=== PATIENT | male | born 1995 | race Caucasian/White ===

== ENCOUNTER 2017-08-29 10:15 | Emergency (ER) | payer OTHER ==
--- NOTE | 2017-08-29 10:27 | EDPHY ---
H & P Time Seen by Provider: 08/29/17 10:23 HPI/ROS: CHIEF COMPLAINT: Bilateral lower extremity injury HISTORY OF PRESENT ILLNESS: 22-year-old male presents with a bilateral lower extremity injury. He was unloading heavy objects from a Pallet, when the Pallet fell onto his legs and pinned his legs underneath it. Estimated weight 600 lb. The palate was lifted and he was able to get out from under it. He now complains of moderate pain in the right thigh and left leg. No numbness or weakness. No other injuries. Fentanyl 50 mcg nebulized given by EMS. REVIEW OF SYSTEMS: complete 10 point ROS negative except as noted in the HPI Past Medical/Surgical History: Denies Social History: No recent alcohol Physical Exam: General Appearance: Alert, anxious Head: Atraumatic Eyes: No conjunctival erythema, PERRLA, EOMI ENT, Mouth: no oral trauma, no bony tenderness Neck: Nontender, full range of motion without pain Respiratory: No chest wall tenderness, lungs clear bilaterally Cardiovascular: Regular rate and rhythm Abdomen: Abdomen is soft and nontender Skin: No lacerations, no abrasions Back: No midline T/L/S tenderness Extremities: Pelvis is stable and nontender; right lower extremity-tenderness, abrasion and swelling over the medial aspect of the distal thigh, right hip/ knee range of motion normal and non painful; left lower extremity-tenderness, abrasion and swelling over the mid aspect of the lower leg and over the lateral malleolus, ankle ROM painful, range of motion of the hip/knee without pain. Compartments are soft, mild swelling present. Neurological: alert, normal motor function, normal sensory exam Vascular: 2+ dorsalis pedis pulses Psychiatric: Anxious Constitutional: Initial Vital Signs Temperature (C) 37.2 C 08/29/17 11:56 Heart Rate 88 08/29/17 11:56 Respiratory Rate 18 08/29/17 11:56 Blood Pressure 129/89 H 08/29/17 11:56 O2 Sat (%) 94 08/29/17 11:56 Allergies/Adverse Reactions: No Known Allergies Allergy (Unverified 08/29/17 11:47) Home Medications: Medication Instructions Recorded Hydrocodone/APAP 5/325 [[place] 1 - 2 tab PO Q4H PRN #10 tab 08/29/17 5/325] Medical Decision Making - Diagnostics Imaging Results: Femur X-Ray 08/29/17 10:24 Impression: Negative 2. Left Tibia-Fibula, 4 portable views History: Heavy work equipment fell on legs today, pain Findings: Prominent soft tissue swelling overlies the lateral malleolus. There is a nondisplaced oblique fracture through the distal fibula. There is a large ankle joint effusion. The knee joint and ankle joint are normally aligned. Impression: Nondisplaced distal fibular fracture. Tibia/Fibula X-Ray 08/29/17 10:24 Impression: Negative 2. Left Tibia-Fibula, 4 portable views History: Heavy work equipment fell on legs today, pain Findings: Prominent soft tissue swelling overlies the lateral malleolus. There is a nondisplaced oblique fracture through the distal fibula. There is a large ankle joint effusion. The knee joint and ankle joint are normally aligned. Impression: Nondisplaced distal fibular fracture. ED Course/Re-evaluation: This patient presents as a limited trauma activation for trauma to his legs. He refuses IV access. He was sent to x-ray. X-rays revealed a left distal fibular fracture. X-ray results discussed with the patient. He was placed in a Betts boot and on crutches. Percocet 2 tablets orally given and Toradol 60 mg IM. He will follow up with Ortho. At risk for compartment syndrome, given crush injury. Warning signs discussed. Differential Diagnosis: Differential diagnosis includes though it is not limited to open fracture, dislocation, compartment syndrome, neurovascular compromise. - Data Points Medications Given: Discontinued Medications Fentanyl (Sublimaze) 100 mcg IVP EDNOW ONE Stop: 08/29/17 11:28 Last Admin: 08/29/17 11:29 Dose: 100 mcg Ketorolac Tromethamine (Toradol) 60 mg IM EDNOW ONE Stop: 08/29/17 11:25 Last Admin: 08/29/17 11:30 Dose: 60 mg Oxycodone/Acetaminophen (Percocet 5/325) 1 tab PO EDNOW ONE Stop: 08/29/17 11:26 Last Admin: 08/29/17 11:30 Dose: 1 tab Departure - Departure Disposition: Home, Routine, Self-Care Clinical Impression: Fracture of distal end of left fibula Qualifiers: Encounter type: initial encounter Fracture type: closed Fracture morphology: unspecified fracture morphology Qualified Code(s): S82.832A - Other fracture of upper and lower end of left fibula, initial encounter for closed fracture Condition: Good Instructions: Leg Fracture (ED) Additional Instructions: Ibuprofen 600 mg 3 times daily while the pain persists. Return for worsening pain, numbness, weakness, any concerns. Referrals: Bill Nguyen MD [Medical Doctor] - As per Instructions (Call to make an appointment.) Stand Alone Forms: Work Excuse Prescriptions: Hydrocodone/APAP 5/325 [[place] 5/325] 1 - 2 tab PO Q4H PRN #10 tab PRN Reason: Pain, Moderate
[2017-08-29] MEDS ORDERED: fentaNYL 100 MCG/2 ML INJ ONE ×2 (11:17→11:20)
[2017-08-29] MEDS ORDERED: OXYCODONE/APAP 5/325 TAB ONE (11:24)
[2017-08-29] MEDS ORDERED: KETOROLAC 30 MG/1 ML SDV IM ONE (11:24)
[2017-08-29] MEDS ORDERED: KETOROLAC 30 MG/1 ML SDV ONE (11:24)
[2017-08-29] MEDS ORDERED: OXYCODONE/APAP 5/325 TAB PO ONE (11:25)
[2017-08-29] MEDS ORDERED: fentaNYL 100 MCG/2 ML INJ IVP ONE (11:27)
[2017-08-29 11:58] VITALS: BP 129/89
== END 2017-08-29 12:09 | disposition home or self-care (01) ==
DX: S82.832A Other fracture of upper and lower end of left fibula, initial encounter for closed fracture (principal); W20.8XXA Other cause of strike by thrown, projected or falling object, initial encounter; Y92.69 Other specified industrial and construction area as the place of occurrence of the external cause; Y99.0 Civilian activity done for income or pay; Y93.89 Activity, other specified
CPT/HCPCS: 96374; J1885; J3010; L4386